=== PATIENT | male | born 1945 ===

== ENCOUNTER 2018-03-01 07:25 | Emergency (ER) | payer OTHER ==
[~2018-03-01] VITALS: Ht 182.9 cm; Wt 86.2 kg
[2018-03-01] MEDS ORDERED: KETO10TA2 PO (11:06)
[2018-03-01] MEDS ORDERED: CLEOCIN HCL300 MG PO (11:06)
== END 2018-03-01 14:13 | disposition home or self-care (01) ==
LOC: ER 07:25
DX: H05.011 Cellulitis of right orbit (principal)